=== PATIENT | male | born 1990 | race Caucasian/White ===

== ENCOUNTER → 2017-01-06 | Outpatient (REF) | payer BC ==
[~2017-01-06] MED LIST: ALLERGY MED PO; CHLO500T2 PO; CLON0.5T3 PO; CPR500T PO; HYDR-4131 PO; LEVO100T7 PO; LEVO112T2 PO; LTH150C PO; OXYC1TAB87 PO; TPR25T PO
[2017-01-06 10:51] LABS: BILIRUBIN,URINE Negative (Negative); CLARITY,URINE Clear; COLOR,URINE Yellow; GLUCOSE, URINE (UA) Negative (Negative); LEUKOCYTE ESTERASE ,URINE Negative (Negative); UROBILINOGEN,URINE 0.2 mg/dL (0.2-1.0)
== END ==
LOC: LAB 10:42
PROVIDERS: ATTEND Physician Assistant Surgical
DX: R30.0 Dysuria (principal)
CPT/HCPCS: 81003

== ENCOUNTER → 2017-01-07 | Outpatient (CLI) | payer BC ==
[~2017-01-07] MED LIST changes: -ALLERGY MED PO; -CHLO500T2 PO; -CLON0.5T3 PO; -CPR500T PO; -LEVO100T7 PO; -LTH150C PO; -OXYC1TAB87 PO
--- NOTE | 2017-01-07 15:25 | Diagnostic Imaging Report ---
INDICATION: UTIs with flank pain. FINDINGS: Right kidney measures 10.4 x 5.3 cm. Renal cortex appears normal. No evidence of hydronephrosis. Left kidney measures 11.5 x 5.7 cm. There is normal cortex with no hydronephrosis. The bladder shows small amount of urine present. There are bilateral ureteral jets demonstrated. IMPRESSION: Normal bilateral renal and bladder ultrasound. Dictated by: Dictated on workstation # [id number]
== END ==
LOC: RAD 10:06
PROVIDERS: ATTEND Physician Assistant Surgical
DX: N23 Unspecified renal colic (principal); R30.0 Dysuria
CPT/HCPCS: 76770

== ENCOUNTER 2017-01-10 10:25 | Emergency (ER) | payer BC ==
[~2017-01-10] VITALS: Ht 182.9 cm; Wt 159.0 kg
--- OUTSIDE RECORDS SUMMARY | 2017-01-10 10:30 | XMS REPORT | Continuity of Care Document ---
Author Author [facility] Address Unknown Phone Unavailable Allergies Active Description Code Type Severity Reaction Onset Reported/Identified Relationship to Patient Clinical Status Yes No Known Drug Allergies [id number] Drug Allergy Unknown N/ A 05/13/2014 Medications Problems Date Dx Coded Attending Type Code Diagnosis Diagnosed By 05/13/2014 CARLOS TUCKER DO Ot 729.5 PAIN IN LIMB 05/13/2014 CARLOS TUCKER DO Ot 729.81 SWELLING OF LIMB 05/13/2014 CARLOS TUCKER DO Ot 782.0 SKIN SENSATION DISTURB 12/14/2014 LEMUEL JORDAN MD Ot 244.9 07/10/2015 LEMUEL JORDAN MD Ot Z79.899 01/09/2016 LEMUEL JORDAN MD Ot E03.9 HYPOTHYROIDISM, UNSPECIFIED 01/09/2016 LEMUEL JORDAN MD Ot F30.9 MANIC EPISODE, UNSPECIFIED 01/09/2016 LEMUEL JORDAN MD Ot E03.9 HYPOTHYROIDISM, UNSPECIFIED 01/09/2016 LEMUEL JORDAN MD Ot F30.9 MANIC EPISODE, UNSPECIFIED 01/23/2016 LEMUEL JORDAN MD Ot E03.9 HYPOTHYROIDISM, UNSPECIFIED 01/23/2016 LEMUEL JORDAN MD Ot F30.9 MANIC EPISODE, UNSPECIFIED 02/20/2016 LEMUEL JORDAN MD Ot E03.9 HYPOTHYROIDISM, UNSPECIFIED 02/20/2016 LEMUEL JORDAN MD Ot F30.9 MANIC EPISODE, UNSPECIFIED 07/14/2016 LEMUEL JORDAN MD Ot 244.9 HYPOTHYROIDISM NOS 07/14/2016 LEMUEL JORDAN MD Ot Z79.899 OTHER COMMERCIAL GREEN RETROFIT ARCHITECT (CURRENT) DRUG THERAPY 07/14/2016 LEMUEL JORDAN MD Ot E03.9 HYPOTHYROIDISM, UNSPECIFIED 07/14/2016 LEMUEL JORDAN MD Ot F30.9 MANIC EPISODE, UNSPECIFIED 07/17/2016 LEMUEL JORDAN MD Ot E03.9 HYPOTHYROIDISM, UNSPECIFIED 07/17/2016 LEMUEL JORDAN MD, Ot F30.9 MANIC EPISODE, UNSPECIFIED 07/17/2016 LEMUEL JORDAN MD, Ot F42.8 OTHER OBSESSIVE-COMPULSIVE DISORDER 07/17/2016 LEMUEL JORDAN MD Ot Z13.220 ENCOUNTER FOR SCREENING FOR LIPOID DISOR 07/27/2016 LEMUEL JORDAN MD, Ot E03.9 HYPOTHYROIDISM, UNSPECIFIED 07/27/2016 LEMUEL JORDAN MD, Ot F30.9 MANIC EPISODE, UNSPECIFIED 07/27/2016 LEMUEL JORDAN MD, Ot F42.8 OTHER OBSESSIVE-COMPULSIVE DISORDER 07/27/2016 LEMUEL JORDAN MD, Ot Z13.220 ENCOUNTER FOR SCREENING FOR LIPOID DISOR 01/08/2017 VANESSA GATICA Ot N23 UNSPECIFIED RENAL COLIC 01/08/2017 VANESSA GATICA Ot R30.0 DYSURIA Procedures Results Test Result Range Comprehensive metabolic panel - 07/13/16 16:50 Sodium measurement 90 70-110 Carbon dioxide measurement 30 22-29 Serum or plasma anion gap 16.2 3-15 BLOOD UREA NITROGEN 7 7-18 CREATININE SERUM 1.02 0.8-1.5 Brucella species antibody panel (IgG, IgM) 7 10-20 Estimated glomerular filtration rate (GFR) 106.0 Estimated glomerular filtration rate (GFR) non- 87.6 OSMOLALITY,CALCULATED 273 280-300 CALCIUM 9.7 8.8-10.8 Calculated ionized calcium measurement 3.9 3.8-4.6 BILIRUBIN,TOTAL 0.4 0.1-1.0 Serum or plasma alkaline phosphatase measurement 57 38-126 ASPARTATE AMINO TRANSFERASE 28 15-37 ALANINE AMINOTRANSFERASE 58 30-65 Serum or plasma total protein measurement 8.3 6.4-8.5 Serum or plasma albumin measurement 4.2 3.4-5.0 Serum or plasma albumin/globulin mass ratio 1.024 1.1-1.8 THYROID STIMULATING HORMONE* - 07/13/16 16:50 THYROID STIMULATING HORMONE 3.01 0.46- 4.68 LIPID PANEL - 07/13/16 16:50 Cholesterol 178 50-200 HDL Cholesterol 48 40-60 Triglycerides 178 10-150 LDL CHOLESTEROL 94 50-130 VLDL Cholesterol, calc 36 4.00-30.00 Cholesterol.total/Cholesterol.in HDL 3.7 0.0-5.0 Serum or plasma lithium measurement (moles/volume) - 07/13/16 16:50 Serum or plasma lithium measurement (moles/volume) < 0.60-1.20 UA CULTURE IF INDICATED* - 01/06/17 10:31 COLLECTION METHOD CLEAN CATCH Color of urine by auto Yellow Urine appearance determination Clear Urine pH measurement by automated test strip 6.0 5.0 - 8.0 Specific gravity of urine by automated test strip 1.025 1.005-1.030 Urine protein measurement by test strip (mass/volume) Negative Negative Urine glucose detection by automated test strip Negative Negative Urine erythrocytes count by automated test strip (number/volume) Negative Negative Urine ketones detection by automated test strip Negative Negative Urine nitrite detection by test strip Negative Negative Urine total bilirubin detection by automated test strip Negative Negative Urine urobilinogen measurement by automated test strip (mass/volume) 0.2 0.2-1.0 Urine leukocyte esterase detection by dipstick Negative Negative Encounters ACCT No. Visit Date/Time Discharge Status Pt. Type Provider Facility Loc./Unit Complaint [id number] 06/26/2015 12:02:00 2014 23:59:59 CLS Outpatient JULIAN BENITES [facility] LAB [id number] 11/28/2014 13:07:00 2014 23:59:59 CLS Outpatient JULIAN BENITES [facility] LAB LAB DROP OFF [id number] 05/13/2014 12:36:00 2013 15:30:00 DIS Emergency GARRETT HERNANDEZ [facility] ED [id number] 01/10/2017 10:27:00 ACT [id number] 01/07/2017 10:06:00 [facility] RAD RENAL COLIC - N23 [id number] 01/06/2017 10:42:00 [place] [facility] [facility] LAB DROP OFF FROM [place] [id number] 07/13/2016 17:11:00 ACT Outpatient JULIAN BENITES [facility] LAB DROP OFF PER JULIAN [id number] 01/06/2016 16:59:00 ACT Outpatient JULIAN BENITES [facility] LAB LAB DROP OFF FROM DR. JORDAN'S OFFICE
--- OUTSIDE RECORDS SUMMARY | 2017-01-10 10:30 | XMS REPORT | Continuity of Care Document ---
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 Type Provider Facility Loc./Unit Complaint [id number] 06/26/2015 12:02:00 2014 23:59:59 CLS Outpatient JULIAN BENITES [facility] LAB [id number] 11/28/2014 13:07:00 2014 23:59:59 CLS Outpatient JULIAN BENITES [facility] LAB LAB DROP OFF [id number] 05/13/2014 12:36:00 2013 15:30:00 DIS Emergency GARRETT HERNANDEZ [facility] ED [id number] 01/10/2017 10:27:00 [id number] 01/07/2017 10:06:00 [place] [facility] [place] [facility] RAD RENAL COLIC - N23 [id number] 01/06/2017 10:42:00 [facility] LAB DROP OFF FROM [place] [id number] 07/13/2016 17:11:00 ACT Outpatient JULIAN BENITES [facility] LAB DROP OFF PER JULIAN [id number] 01/06/2016 16:59:00 ACT Outpatient JULIAN BENITES [facility] LAB LAB DROP OFF FROM DR. JORDAN'S OFFICE
[2017-01-10] MEDS ORDERED: CLON0.5T3 PO (10:58)
[2017-01-10] MEDS ORDERED: ALLERGY MED PO (10:58)
[2017-01-10] MEDS ORDERED: LEVO100T7 PO (10:58)
[2017-01-10] MEDS ORDERED: CPR500T PO (10:58)
[2017-01-10] MEDS ORDERED: LTH150C PO (10:58)
[2017-01-10] MEDS ORDERED: fentaNYL 100 MCG/2 ML VIAL IV STA (11:38)
[2017-01-10] MEDS ORDERED: ONDANSETRON 2 MG/ML (Z0FRAN) 2 ML VIAL IV STA (11:38)
[2017-01-10] MEDS ORDERED: SODIUM CHLORIDE FLUSH 10 ML SYR IV PRN (11:40)
[2017-01-10] MEDS ORDERED: SODIUM CHLORIDE FLUSH 3 ML SYR IV PRN (11:40)
[2017-01-10 12:01] LABS: BASOPHILS % (AUTO) 0 % (0-2); EOSINOPHILS # (AUTO) 0.1 10^3uL; EOSINOPHILS % (AUTO) 1 % (0-4); MEAN CORPUSCULAR HEMOGLOBIN 30.1 PG (26.0-34.0); MEAN CORPUSCULAR HGB CONC 34.4 g/dL (31.0-37.0); MEAN CORPUSCULAR VOLUME 88 FL (80-100); MEAN PLATELET VOLUME 9.8 FL (6.0-9.5); MONOCYTES # (AUTO) 0.7 X10^3; MONOCYTES % (AUTO) 9 % (3-11); NEUTROPHILS # (AUTO) 5.6 X10^3; NEUTROPHILS % (AUTO) 67 % (51-67); PLATELET COUNT 344 10^3uL (150-450); WHITE BLOOD COUNT 8.35 10^3uL (4.0-11.0)
[2017-01-10 12:02] LABS: BILIRUBIN,URINE Negative (Negative); CLARITY,URINE Clear; COLOR,URINE Yellow; GLUCOSE, URINE (UA) Negative (Negative); LEUKOCYTE ESTERASE ,URINE Negative (Negative); PH,URINE 5.5 (5.0 - 8.0); UROBILINOGEN,URINE 0.2 mg/dL (0.2-1.0)
[2017-01-10 12:12] LABS: RBC,URINE 0-2 /HPF; URINE CENTRIFUGED VOLUME 12 mL
[2017-01-10 12:13] LABS: ALBUMIN 4.5 g/dL (3.4-5.0); ANION GAP 12.9 MEQ/L (3-15); CALCULATED IONIZED CALCIUM 3.6 mg/dL (3.8-4.6); TOTAL PROTEIN 8.8 g/dL (6.4-8.5)
[2017-01-10] MEDS ORDERED: OXYC1TAB87 PO (13:36)
[2017-01-10] MEDS ORDERED: CHLO500T2 PO (13:36)
[2017-01-10 14:03] VITALS: BP 139/81
== END 2017-01-10 14:16 | disposition home or self-care (01) ==
LOC: ED 10:27
DX: R10.12 Left upper quadrant pain (principal); R10.11 Right upper quadrant pain; E03.9 Hypothyroidism, unspecified
CPT/HCPCS: 36415; 80053; 80178; 81003; 81015; 83690; 84443; 85025; 96374; 96375; 99283; J2405; J3010